=== PATIENT | male | born 1960 | race Caucasian/White ===

== ENCOUNTER 2018-02-19 15:10 | Inpatient (IN) | payer MEDICAID, MEDICARE ==
[2018-02-19] MEDS ORDERED: cefTRIAXone 1 GM in Sodium Chloride 0.9% 50 ML IV ONE (15:53)
--- NOTE | 2018-02-19 16:12 | ED Physician Chart ---
ED Chief Complaint/HPI - Patient Information Date Seen:: 02/19/18 Time Seen:: 15:40 Chief Complaint:: Leg Swelling History of Present Illness:: onset x 3 days of bilateral LE Redness, swelling, pain, and erythema; pt denies trauma, LOC, ALOC, AMS, H/As, S/T, neck pain, C/P, SOB, cough, Abd. Pain, A/N/V/ D/C, fever, chills, or urinary s/s; pt's last tetanus shot: < 5 years; UTD Allergies:: Allergies Allergy/AdvReac Type Severity Reaction Status Date / Time No Known Allergies Allergy Verified 02/19/18 15:34 Vitals:: Vital Signs - 8 hr 02/19/18 15:37 Temp 98.7 F HR 87 RR 16 BP 131/70 O2 Sat % 95 Historian:: Patient, EMS Review:: Nurse's Note Reviewed, Old Chart Reviewed, EMS run form Reviewed ED Review of Systems - Review of Systems General/Constitutional: No fever, No chills, No weight loss, No weakness, No diaphoresis, No edema, No loss of appetite Skin: No skin lesions, No rash, No bruising Head: No headache, No light-headedness Eyes: No loss of vision, No pain, No diplopia ENT: No earache, No nasal drainage, No sore throat, No tinnitus Neck: No neck pain, No swelling, No thyromegaly, No stiffness, No mass noted Cardio Vascular: No chest pain, No palpitations, No PND, No orthopnea, No edema Pulmonary: No SOB, No cough, No sputum, No wheezing GI: Nausea, Vomiting, Diarrhea, Pain, No melena, No hematochezia, No constipation, No hematemesis G/U: No dysuria, No frequency, No hematuria, No nacturia Musculoskeletal: No bone or joint pain, Back pain, No muscle pain Endocrine: No polyuria, No polydipsia Psychiatric: Prior psych history, Depression, Anxiety, No suicidal ideation, No homicidal ideation, No auditory hallucination, No visual hallucination Hematopoietic: No bruising, No lymphadenopathy Allergic/Immuno: No urticaria, No angioedema Neurological: No syncope, No focal symptoms, No weakness, No paresthesia, No headache, No seizure, No dizziness, No confusion, No vertigo ED Past Medical History - Past Medical History Obtainable: Yes Past Medical History: HTN, CAD, Dyslipidemia, PUD/GERD, Other (Hepatitis C; Pancreatitis; ) Family History: HTN Social History: Smoker, Alcohol, No Drug Use, Single, Care Facility Surgical History: None Psychiatricy History: Depression Medication: Reviewed Family Medical History - Family Member Father History Unknown: Yes ED Physical Exam - Physical Examination General/Constitutional: Awake, Well-developed, well-nourished, Alert, No distress, GCS 15, Non-toxic appearing, Ambulatory Head: Atraumatic Eyes: Lids, conjuctiva normal, PERRL, EOMI Skin: Nl inspection, No rash, No skin lesions, No ecchymosis, Well hydrated, No lymphadenopathy Other Skin comments:: + LE Bilateral LE Cellulitis; good NV functions ENMT: External ears, nose nl, TM canals nl, Nasal exam nl, Lips, teeth, gums nl , Oropharynx nl, Tonsils nl Neck: Nontender, Full ROM w/o pain, No JVD, No nuchal rigidity, No bruit, No mass, No stridor Respiratory: Nl effort/Exclusion Other Respiratory comments:: Lungs: + Rales and Rhonchi Cardio Vascular: RRR, No murmur, gallop, rubs, NL S1 S2, Carotid/Femoral/Distal pulses equal bilaterally GI: No tenderness/rebounding/guarding, No organomegaly, No hernia, Normal BS's, Nondistended, No mass/bruits, No McBurney tenderness : No CVA tenderness Extremities: No tenderness or effusion, Full ROM, normal strength in all extremities, No edema, Normal digits & nails Neuro/Psych: Alert/oriented, DTR's symmetric, Normal sensory exam, Normal motor strength, Judgement/insight normal, Mood normal, Normal gait, No focal deficits Misc: Normal back, No paraspinal tenderness ED Labs/Radiology/EKG Results - Lab Results Comments:: Reviewed - Radiology Results Comments:: CXR: + RLL Infiltrate; + CHF; + PE; Abd/Pelvis CT Scan: + Pneumonia/Effusions; ASCVD - EKG Interpretations EKG Time:: 16:04 Rate & Rhythm: 86; NSR Comments:: non-specific st-t changes ED Septic Shock - . Is Septic Shock (SBP<90, OR Lactate>4 mmol\L) present?: No - <6hrs of presentation: Vital Signs: Vital Signs - 8 hr 02/19/18 15:37 Temp 98.7 F HR 87 RR 16 BP 131/70 O2 Sat % 95 ED Reassessment (Disposition) - Reassessment Reassessment Condition:: Improved - Diagnosis Diagnosis:: Dx: Cellulitis; Leg Pain; Leg Edema; Back Pain; Anemia; Thrombocytopenia; Hypoalbuminemia; CHF; Elevated BNP; Pneumonia; Pleural Effusions; Sepsis - Aftercare/Follow up Instructions Aftercare/Follow-Up Instructions:: Counseled pt regarding lab results/diagnosis & need follow up, Counseled pt & family regarding lab results/diagnosis & need follow up - Patient Disposition Discharge/Transfer:: Acute Care w/in this hosp Accepting Physician:: Dr. Gonzalez Time Called:: 1729 Time Responded:: 17:30 Admitted to:: Telemetry Spoke to:: Dr. Gonzalez Admitting Medical Physician:: Dr. Gonzalez Condition at Disposition:: Stable, Improved
[2018-02-19 16:17] LABS: BASOPHILE ABSOLUTE 0.1 Th/cumm (0-0.2); EOSINOPHILE ABSOLUTE 0.2 Th/cmm (0.1-0.4); HEMATOCRIT 35.2 % (41.0-60); HEMOGLOBIN 11.5 gm/dL (12-16); LYMPHOCYTE ABSOLUTE 1.4 Th/cmm (1.5-3.0); MEAN CELL VOLUME 80.8 fl (80-99); MEAN CORPUSCULAR HEMOGLOBIN 26.4 pg (26.0-30.0); MEAN CORPUSCULAR HGB CONC 32.7 pg (28.0-36.0); MEAN PLATELET VOLUME 8.8 fl; MONOCYTE ABSOLUTE 0.8 Th/cmm (0.3-1.0); NEUTROPHILE ABSOLUTE 2.5 Th/cmm (1.8-8.0); PLATELET COUNT 140 Th/cmm (150-400); RED BLOOD COUNT 4.35 Mil/cmm (4.30-5.70); RED CELL DISTRIBUTION WIDTH 14.8 % (11.5-20.0)
[2018-02-19 16:19] LABS: % BASOPHILS 1.4 % (0.0-2.0); % EOSINOPHILS 4.7 % (0.0-5.0); % LYMPHOCYTES 28.5 % (20.0-50.0); % MONOCYTES 15.6 % (2.0-10.0); % NEUTROPHILS 49.8 % (40.0-80.0)
[2018-02-19 16:21] LABS: ALBUMIN 3.2 gm/dL (4.2-5.5); ALKALINE PHOSPHATASE 91 U/L (34-104); ANION GAP 11.7 (7.0-16.0); BILIRUBIN,TOTAL 0.6 mg/dL (0.3-1.0); BUN - UREA NITROGEN 17 mg/dL (7-25); CALCIUM SERUM 9.1 mg/dL (8.6-10.3); CARBON DIOXIDE 25.4 mEq/L (21.0-31.0); CHLORIDE 109 mEq/L (98-107); CHOLESTEROL 125 mg/dL (<200); CREATININE - SERUM 0.9 mg/dL (0.7-1.3); CREATININE KINASE 53 U/L (30-223); GFR AFRICAN-AMERICAN > 60.0 ml/min (>90); GFR NON AFRICAN-AMERICAN > 60.0 ml/min; GLUCOSE 74 mg/dL (70-105); HDL -HIGH DENSITY LIPOPROTEIN 47 mg/dL (23-92); POTASSIUM SERUM 4.1 mEq/L (3.5-5.1); SGOT 36 U/L (13-39); SGPT/ALT 26 U/L (7-52); SODIUM SERUM 142 mEq/L (136-145); TOTAL PROTEIN,SERUM 6.3 gm/dL (6.0-8.3); TRIGLYCERIDES 67 mg/dL (<150)
[2018-02-19 16:22] LABS: INR 1.02 (0.5-1.4); PROTHROMBIN TIME (TEST) 10.6 SECONDS (9.5-11.5)
[2018-02-19 16:49] LABS: ALB/GLOB RATIO 1.2 (1.0-1.8); ALBUMIN 3.2 gm/dL (4.2-5.5); BILIRUBIN,DIRECT 0.19 mg/dL (0.0-0.2); BILIRUBIN,TOTAL 0.6 mg/dL (0.3-1.0); TOTAL PROTEIN,SERUM 5.8 gm/dL (6.0-8.3)
[2018-02-19 16:50] LABS: AMYLASE SERUM 37 U/L (29-103); LIPASE 28 U/L (11-82)
[2018-02-19 18:21] LABS: URINE SOURCE MIDSTREAM
[2018-02-19 18:24] LABS: URINE BILIRUBIN NEGATIVE (NEGATIVE); URINE BLOOD TRACE (NEGATIVE); URINE GLUCOSE (UA) NEGATIVE (NEGATIVE); URINE KETONE NEGATIVE (NEGATIVE); URINE LEUKOCYTE ESTERASE NEGATIVE (NEGATIVE); URINE MICROSCOPIC INDICATED? YES; URINE NITRATE NEGATIVE (NEGATIVE); URINE PROTEIN TRACE mg/dL (NEGATIVE); URINE UROBILINOGEN 0.2 E.U./dL (0.2 - 1.0)
[2018-02-19 18:54] LABS: URINE CLARITY CLEAR (CLEAR); URINE COLOR YELLOW
[2018-02-19 18:57] LABS: URINE BACTERIA FEW /hpf (NONE SEEN); URINE EPITHELIAL CELLS FEW /lpf (FEW); URINE WBC 0-2 /hpf (0-5)
[2018-02-19] MEDS ORDERED: Non-Formulary Item 1 EA (Acetaminophen [Pain Reliever] 650 MG) PO PRN (20:00)
[2018-02-19] MEDS ORDERED: Azithromycin 500 MG in Sodium Chloride 0.9% 250 ML IV ONE (20:00)
[2018-02-19] MEDS ORDERED: Magnesium Hydroxide (MOM) 30 mL UDC PO PRN (20:00)
[2018-02-19 23:19] VITALS: BP 126/72
--- NOTE | 2018-02-20 08:36 | Diagnostic Imaging Report ---
CHEST X-RAY: AP view INDICATION: pain COMPARISON: None FINDINGS: Small bilateral effusions are noted with bibasal infiltrates. Mild cardiomegaly is noted. Degenerative changes of the spine are noted. IMPRESSION: Small bilateral effusions and bibasal infiltrates. Mild cardiomegaly.
--- NOTE | 2018-02-20 08:39 | Diagnostic Imaging Report ---
Bilateral lower extremity DVT study HISTORY: Pain, rule out DVT COMPARISON: None Technique: Longitudinal and transverse sonographic images of the bilateral lower extremity veins were obtained with doppler analysis. FINDINGS: There is normal compressibility, augmentation and phasicity of the bilateral common femoral, superficial femoral, popliteal, and posterior tibial veins. No thrombus is visualized. IMPRESSION: No evidence of thrombus within the bilateral lower extremity veins.
[2018-02-20] MEDS ORDERED: Non-Formulary Item 1 EA (Thiamine Hcl [Thiamine Hcl] 100 MG) PO SCH (09:00)
[2018-02-20] MEDS ORDERED: Non-Formulary Item 1 EA (Multivitamin [Multi-Vitamin Daily] 1 TAB) PO SCH (09:00)
[2018-02-20] MEDS ORDERED: Non-Formulary Item 1 EA (Potassium Chloride [Potassium Chloride] 20 MEQ) PO SCH (09:00)
[2018-02-20] MEDS ORDERED: Non-Formulary Item 1 EA (Rifaximin [Xifaxan] 550 MG) PO SCH (09:00)
[2018-02-20] MEDS ORDERED: Non-Formulary Item 1 EA (Lactulose [Lactulose] 30 ML) PO SCH (09:00)
[2018-02-20] MEDS ORDERED: Insulin Detemir 100 units/mL 10mL Vial SUBQ SCH (09:00)
--- NOTE | 2018-02-20 09:03 | Diagnostic Imaging Report ---
CT abdomen and pelvis without intravenous contrast Indication: Abdominal pain, back pain, rule out aneurysm Comparison: None, Technique: Axial images were obtained from the lung bases to the bilateral proximal femurs without IV contrast. Coronal reconstructions were made. total DLP: 475, CTDI9.3 FINDINGS: Bilateral pleural effusions are seen with bibasal infiltrates. Small pericardial effusion is noted. Exam is limited due to lack of IV contrast. A TIPS shunt catheter is noted. Punctate granuloma seen in the right lobe of the liver. The patient is status post cholecystectomy. The spleen is prominent measuring 13.5 cm. There are probable varices and most pronounced along the splenic region. This limits assessment of the left adrenal gland. No focal abnormal masses of the right adrenal gland. No evidence of hydronephrosis or nephrolithiasis. Minimal nonspecific bilateral perinephric inflammatory changes are noted. Distended urinary bladder is noted. Mild urinary bladder wall thickening is noted. Mildly distended fluid-filled stomach is noted. There is a moderate amount of stool throughout the colon. No appendicitis. No evidence of free abdominal air or free abdominal fluid. Diffuse atherosclerosis is noted. Degenerative changes of the spine are noted with mild scoliosis. Few small bone island are seen within the spine and pelvis. Anasarca is noted. IMPRESSION: Diffuse atherosclerotic vascular disease. No evidence of an abdominal aortic aneurysm. Exam was limited due to lack of IV contrast. Distended urinary bladder with mild urinary bladder wall thickening. Inflammatory process cannot be excluded. Moderate stool throughout the colon with gas-filled bowel. Please correlate clinically for possible mild constipation TIPS shunt catheter. There is also evidence of prior cholecystectomy. Mild splenomegaly. There is suggestion of multiple varices along the upper abdomen including the left upper quadrant. Note assessment for varices was limited that lack of IV contrast. Bilateral effusions and bibasal infiltrates. Anasarca.
[2018-02-20] MEDS: Lactulose 10 Gm/15 mL 30mL UDC PO SCH (10:34)
[2018-02-20] MEDS: Potassium Chloride 20 mEq ER Tab PO SCH ×2 (10:35→19:39)
[2018-02-20] MEDS: Ferrous Sulfate 325 MG TAB PO SCH ×2 (10:35→19:39)
[2018-02-20] MEDS: Multivitamin Tab PO SCH (10:35)
[2018-02-20] MEDS: Pantoprazole 40 mg EC Tab PO SCH (10:36)
--- NOTE | 2018-02-20 14:59 | Cardiology ---
02/20/[address] Gonzalez. M-MODE ECHOCARDIOGRAM: Mitral valve, anterior leaflet of mitral valve shows normal excursion, EF velocity. Posterior leaflet of the mitral valve shows normal excursion. Left ventricular posterior wall shows increased thickness, normal excursion. Interventricular septum shows increased thickness, normal excursion, hypertrophy of the left ventricle, ejection fraction 58%. Left atrium enlarged 4.7 cm. Aortic root shows normal dimension, normal excursion of aortic leaflets. CONCLUSION: Hypertrophy of the left ventricle, left atrial enlargement, ejection fraction 58%. 2D ECHO: Long axis view showed normal sized left ventricle with hypertrophy of the left ventricle. Left atrium enlarged. Aortic root shows normal dimension, normal excursion of aortic leaflets. Short axis view of mitral valve normal. Short axis view of aortic valve normal. Apical four chamber view showed normal sized left ventricle with hypertrophy of the left ventricle. Left atrium enlarged. Right ventricular cavity, right atrium enlarged. CONCLUSION: Left atrial enlargement, right atrial enlargement. Hypertrophy of the left ventricle, ejection fraction 58%. Doppler study shows moderate mitral regurgitation, moderate tricuspid regurgitation, right ventricular systolic pressure 42 mmHg. The patient has pleural effusion. JOB# [id number]
[2018-02-20] MEDS: INSULIN ASPART SLIDING SCALE 100 UNITS/ML UNIT SUBQ SCH ×2 (17:00→21:50)
--- NOTE | 2018-02-20 20:45 | History & Physical ---
ADMIT DATE: 02/19/2018 CHIEF COMPLAINT: Leg swelling, shortness of breath. HISTORY OF PRESENT ILLNESS: This is a 57-year-old male with history of cirrhosis, alcoholic hepatitis, generalized weakness, sent from the nursing facility secondary to history of bilateral lower extremity swelling and redness. The patient was diagnosed with a cellulitis in the ER, chest x-ray was suspicious for pneumonia. The patient admitted for further management. The patient denies chest pain, shortness of breath. PAST MEDICAL HISTORY: As mentioned in history of present illness. PAST SURGICAL HISTORY: Denies surgeries in the past. ALLERGIES: No known drug allergies. MEDICATIONS: The patient needs insulin, Tylenol, ascorbic acid, aspirin, Dulcolax, carvedilol, iron, folic acid, gabapentin, detemir insulin, lactulose, multivitamins, pantoprazole, potassium, sertraline, thiamine, tramadol. FAMILY HISTORY: Noncontributory. SOCIAL HISTORY: ____ smoker and drinker in the past. The patient did ____. The patient lives in custodial for and expected it was in [place]. PHYSICAL EXAMINATION: VITAL SIGNS: Blood pressure 120/63, respiration 18, pulse 83, temperature 99.2. GENERAL: Elderly male, appears chronically ill. NECK: Supple. LUNGS: Equal breath sounds with few rhonchi. HEART: Regular rate and rhythm without systolic ejection murmur. ABDOMEN: Soft, globular. EXTREMITIES: Positive excoriation atrophy. Trace edema in lower extremity and redness the right lower extremity. LABORATORY DATA: WBC 5.1, hemoglobin 9.5, platelets 140. INR 1.2. Sodium 142, potassium 4.0, BUN 20, creatinine 0.9, blood sugar 248, BNP ____. ASSESSMENT: Bilateral lower extremity cellulitis, possible pneumonia, low albumin, cirrhosis, alcohol hepatitis, generalized weakness, hepatic encephalopathy, anemia. We will continue the patient on IV antibiotic. We will titrate the patient on current dose of medication. We will monitor for any signs of fluid overload. We will perform 2D echo. We will continue on rifaximin. We will adjust the patient's medication. We will follow the patient closely. JOB# [id number]
[2018-02-20] MEDS: Insulin Detemir 100 units/mL 10mL Vial SUBQ SCH (21:48)
[2018-02-21 06:27] LABS: EOSINOPHILE ABSOLUTE 0.4 Th/cmm (0.1-0.4); HEMOGLOBIN 10.9 gm/dL (12-16); LYMPHOCYTE ABSOLUTE 1.9 Th/cmm (1.5-3.0); MEAN CELL VOLUME 80.2 fl (80-99); MEAN CORPUSCULAR HEMOGLOBIN 26.6 pg (26.0-30.0); MEAN CORPUSCULAR HGB CONC 33.2 pg (28.0-36.0); MEAN PLATELET VOLUME 9.4 fl; MONOCYTE ABSOLUTE 0.8 Th/cmm (0.3-1.0); NEUTROPHILE ABSOLUTE 2.3 Th/cmm (1.8-8.0); PLATELET COUNT 135 Th/cmm (150-400); RED BLOOD COUNT 4.11 Mil/cmm (4.30-5.70); RED CELL DISTRIBUTION WIDTH 14.1 % (11.5-20.0); WHITE BLOOD COUNT 5.4 Th/cmm (4.8-10.8)
[2018-02-21 06:43] LABS: ALB/GLOB RATIO 1.1 (1.0-1.8); ALKALINE PHOSPHATASE 76 U/L (34-104); ANION GAP 10.7 (7.0-16.0); BILIRUBIN,TOTAL 0.5 mg/dL (0.3-1.0); BUN - UREA NITROGEN 12 mg/dL (7-25); CALCIUM SERUM 8.6 mg/dL (8.6-10.3); CHLORIDE 111 mEq/L (98-107); CREATININE - SERUM 0.8 mg/dL (0.7-1.3); GFR AFRICAN-AMERICAN > 60.0 ml/min (>90); GFR NON AFRICAN-AMERICAN > 60.0 ml/min; GLUCOSE 65 mg/dL (70-105); POTASSIUM SERUM 3.7 mEq/L (3.5-5.1); SGOT 31 U/L (13-39); SGPT/ALT 24 U/L (7-52); SODIUM SERUM 145 mEq/L (136-145); TOTAL PROTEIN,SERUM 5.8 gm/dL (6.0-8.3)
[2018-02-21 07:30] LABS: BAND NEUTROPHILE 1 % (0-10); EOSINOPHIL 5 % (0-5); LYMPHOCYTE 40 % (20-50); MONOCYTE 12 % (2-10); NEUTROPHILS 42 % (40-80)
[2018-02-21 07:34] LABS: ANISOCYTOSIS 1+
[2018-02-21] MEDS: INSULIN ASPART SLIDING SCALE 100 UNITS/ML UNIT SUBQ SCH ×4 (08:52→21:26)
[2018-02-21] MEDS: Potassium Chloride 20 mEq ER Tab PO SCH ×2 (08:54→16:53)
[2018-02-21] MEDS: Ferrous Sulfate 325 MG TAB PO SCH ×2 (08:54→16:53)
[2018-02-21] MEDS: Multivitamin Tab PO SCH (08:55)
[2018-02-21] MEDS: Lactulose 10 Gm/15 mL 30mL UDC PO SCH (08:55)
[2018-02-21] MEDS ORDERED: Probiotic Screen MC PRN (10:15)
--- NOTE | 2018-02-21 15:17 | Internal Medicine Prog Note ---
Internal Medicine Subjective - Subjective Patient seen and examined:: with staff, chart reviewed Patient is:: awake, verbal, interactive Patient Complaints of:: congestion, unable to sleep, weight gain Per staff patient has:: no adverse event, no episodes of fall, tolerating meds Internal Medicine Objective - Results Result Diagrams: 02/21/18 05:30 02/21/18 05:30 Recent Labs: Laboratory Last Values WBC 5.4 Th/cmm (4.8-10.8) 02/21/18 05:30 RBC 4.11 Mil/cmm (4.30-5.70) L 02/21/18 05:30 Hgb 10.9 gm/dL (12-16) L 02/21/18 05:30 Hct 33.0 % (41.0-60) L 02/21/18 05:30 MCV 80.2 fl (80-99) 02/21/18 05:30 MCH 26.6 pg (26.0-30.0) 02/21/18 05:30 MCHC Differential 33.2 pg (28.0-36.0) 02/21/18 05:30 RDW 14.1 % (11.5-20.0) 02/21/18 05:30 Plt Count 135 Th/cmm (150-400) L 02/21/18 05:30 MPV 9.4 fl 02/21/18 05:30 Add Manual Diff YES 02/21/18 05:30 Neutrophils % 49.8 % (40.0-80.0) 02/19/18 15:58 Band Neutrophils % 1 % (0-10) 02/21/18 05:30 Lymphocytes % 28.5 % (20.0-50.0) 02/19/18 15:58 Monocytes % 15.6 % (2.0-10.0) H 02/19/18 15:58 Eosinophils % 4.7 % (0.0-5.0) 02/19/18 15:58 Basophils % 1.4 % (0.0-2.0) 02/19/18 15:58 Neutrophils (Manual) 42 % (40-80) 02/21/18 05:30 Lymphocytes 40 % (20-50) 02/21/18 05:30 Monocytes 12 % (2-10) H 02/21/18 05:30 Eosinophils 5 % (0-5) 02/21/18 05:30 Anisocytosis 1+ 02/21/18 05:30 PT 10.6 SECONDS (9.5-11.5) 02/19/18 15:58 INR 1.02 (0.5-1.4) 02/19/18 15:58 PTT (Actin FS) 28.5 SECONDS (26.0-38.0) 02/19/18 15:58 Sodium 145 mEq/L (136-145) 02/21/18 05:30 Potassium 3.7 mEq/L (3.5-5.1) 02/21/18 05:30 Chloride 111 mEq/L (98-107) H 02/21/18 05:30 Carbon Dioxide 27.0 mEq/L (21.0-31.0) 02/21/18 05:30 Anion Gap 10.7 (7.0-16.0) 02/21/18 05:30 BUN 12 mg/dL (7-25) 02/21/18 05:30 Creatinine 0.8 mg/dL (0.7-1.3) 02/21/18 05:30 Est GFR ( Amer) > 60.0 ml/min (>90) 02/21/18 05:30 Est GFR (Non-Af Amer) > 60.0 ml/min 02/21/18 05:30 BUN/Creatinine Ratio 15.0 02/21/18 05:30 Glucose 65 mg/dL (70-105) L 02/21/18 05:30 POC Glucose 181 MG/DL (70 - 105) H 02/21/18 11:47 Whole Bld Lactic Acid 0.76 mmol/L (0.60-1.99) 02/19/18 15:58 Calcium 8.6 mg/dL (8.6-10.3) 02/21/18 05:30 Total Bilirubin 0.5 mg/dL (0.3-1.0) 02/21/18 05:30 Direct Bilirubin 0.19 mg/dL (0.0-0.2) 02/19/18 15:58 AST 31 U/L (13-39) 02/21/18 05:30 ALT 24 U/L (7-52) 02/21/18 05:30 Alkaline Phosphatase 76 U/L (34-104) 02/21/18 05:30 Creatine Kinase 53 U/L (30-223) 02/19/18 15:58 Troponin I 0.02 ng/mL (0.01-0.05) 02/19/18 15:58 B-Natriuretic Peptide 303.0 pg/mL (5.0-100.0) H 02/21/18 05:30 Total Protein 5.8 gm/dL (6.0-8.3) L 02/21/18 05:30 Albumin 3.0 gm/dL (4.2-5.5) L 02/21/18 05:30 Globulin 2.8 gm/dL 02/21/18 05:30 Albumin/Globulin Ratio 1.1 (1.0-1.8) 02/21/18 05:30 Triglycerides 67 mg/dL (<150) 02/19/18 15:58 Cholesterol 125 mg/dL (<200) 02/19/18 15:58 LDL Cholesterol Direct 62 mg/dL (75-193) L 02/19/18 15:58 HDL Cholesterol 47 mg/dL (23-92) 02/19/18 15:58 Amylase 37 U/L (29-103) 02/19/18 15:58 Lipase 28 U/L (11-82) 02/19/18 15:58 Urine Source MIDSTREAM 02/19/18 16:15 Urine Color YELLOW 02/19/18 16:15 Urine Clarity CLEAR (CLEAR) 02/19/18 16:15 Urine pH 6.0 (4.6 - 8.0) 02/19/18 16:15 Ur Specific Clark 1.015 (1.005-1.030) 02/19/18 16:15 Urine Protein TRACE mg/dL (NEGATIVE) 02/19/18 16:15 Urine Glucose (UA) NEGATIVE mg/dL (NEGATIVE) 02/19/18 16:15 Urine Ketones NEGATIVE mg/dL (NEGATIVE) 02/19/18 16:15 Urine Blood TRACE (NEGATIVE) 02/19/18 16:15 Urine Nitrate NEGATIVE (NEGATIVE) 02/19/18 16:15 Urine Bilirubin NEGATIVE (NEGATIVE) 02/19/18 16:15 Urine Urobilinogen 0.2 E.U./dL (0.2 - 1.0) 02/19/18 16:15 Ur Leukocyte Esterase NEGATIVE (NEGATIVE) 02/19/18 16:15 Urine RBC 2-5 /hpf (0-5) H 02/19/18 16:15 Urine WBC 0-2 /hpf (0-5) 02/19/18 16:15 Ur Epithelial Cells FEW /lpf (FEW) 02/19/18 16:15 Urine Bacteria FEW /hpf (NONE SEEN) 02/19/18 16:15 Urine Mucus FEW /lpf (FEW) 02/19/18 16:15 - Physical Exam Vitals and I&O: Vital Signs Temp 97.9 F 02/21/18 13:52 Pulse 84 02/21/18 13:52 Resp 18 02/21/18 13:52 BP 120/78 02/21/18 13:52 Pulse Ox 95 02/21/18 13:52 Intake & Output 02/20/18 02/21/18 02/21/18 18:59 06:59 18:59 Intake Total 100 500 Balance 100 500 Weight (lbs) 72.121 kg Intake: Intake, IV Amount 100 200 Piperacillin Sodium/ 100 200 Tazobact 4.5 gm In Sodium Chloride 0.9% 100 ml @ 100 mls/hr IV Q8HR [facility] Rx #:[id number] Oral 300 Other: # Voids 3 # Bowel Movements 2 Weight Source Bedscale Active Medications: Current Medications Acetaminophen (Tylenol) 650 mg PO Q4H PRN PRN Reason: T=100.4/Pain Stop: 04/21/18 00:14 Last Admin: 02/20/18 02:20 Dose: 650 mg Acetaminophen (Tylenol) 650 mg PO Q4H PRN PRN Reason: PAIN/FEVER Stop: 04/21/18 08:50 Amlodipine Besylate (Norvasc) 10 mg PO DAILY [facility] Stop: 04/21/18 08:59 Last Admin: 02/21/18 08:55 Dose: 10 mg Ascorbic Acid (Vitamin C) 500 mg PO DAILY [facility] Stop: 04/21/18 08:59 Last Admin: 02/21/18 08:55 Dose: 500 mg Aspirin (Ecotrin) 81 mg PO DAILY [facility] Stop: 04/21/18 08:59 Last Admin: 02/21/18 08:55 Dose: 81 mg Bisacodyl (Dulcolax 10 Mg Supp) 10 mg RC DAILY PRN PRN Reason: Constipation Stop: 04/20/18 19:59 Carvedilol (Coreg) 6.25 mg PO BID [facility] Stop: 04/21/18 08:59 Last Admin: 02/21/18 08:54 Dose: 6.25 mg Ferrous Sulfate (Iron) 325 mg PO BID [facility] Stop: 04/21/18 08:59 Last Admin: 02/21/18 08:54 Dose: 325 mg Folic Acid (Folate) 1 mg PO DAILY [facility] Stop: 04/21/18 08:59 Last Admin: 02/21/18 08:54 Dose: 1 mg Furosemide (Lasix) 40 mg IVP DAILY [facility] Stop: 04/22/18 15:12 Gabapentin (Neurontin) 300 mg PO Q12H [facility] Stop: 04/20/18 19:59 Last Admin: 02/21/18 08:55 Dose: 300 mg Piperacillin Sod/Tazobactam (Sod 4.5 gm/ Sodium Chloride) 100 mls @ 100 mls/hr IV Q8HR [facility] Stop: 04/20/18 20:59 Last Admin: 02/21/18 12:37 Dose: 100 mls/hr Insulin Aspart (Novolog Insulin Sliding Scale) 0 units SUBQ ACHS [facility]; Protocol Stop: 04/21/18 16:29 Last Admin: 02/21/18 12:37 Dose: Not Given Insulin Detemir (Levemir Insulin) 16 units SUBQ HS [facility]; Protocol Stop: 04/21/18 20:59 Last Admin: 02/20/18 21:48 Dose: 16 units Lactobacillus Rhamnosus (Culturelle 15b) 1 each PO DAILY [facility] Stop: 04/23/18 08:59 Lactulose (Cephulac) 20 gm PO DAILY [facility] Stop: 04/21/18 08:59 Last Admin: 02/21/18 08:55 Dose: 20 gm Magnesium Hydroxide (Milk Of Magnesia) 30 ml PO Q2D PRN PRN Reason: Constipation Stop: 04/20/18 19:59 Miscellaneous (Probiotic Screen) 1 ea MC PRN PRN PRN Reason: PROTOCOL Stop: 04/22/18 10:14 Multivitamins/Vitamin C (Theragran) 1 tab PO DAILY [facility] Stop: 04/21/18 08:59 Last Admin: 02/21/18 08:55 Dose: 1 tab Pantoprazole Sodium (Protonix) 40 mg PO DAILY [facility] Stop: 04/21/18 08:59 Last Admin: 02/20/18 10:36 Dose: 40 mg Potassium Chloride (Klor-Con) 20 meq PO BID [facility] Stop: 04/21/18 08:59 Last Admin: 02/21/18 08:54 Dose: 20 meq Rifaximin (Xifaxan) 600 mg PO DAILY [facility] Stop: 04/21/18 08:59 Last Admin: 02/21/18 08:53 Dose: 600 mg Sertraline HCl (Zoloft) 100 mg PO DAILY [facility]; Protocol Stop: 04/21/18 08:59 Last Admin: 02/21/18 08:53 Dose: 100 mg Thiamine HCl (Vitamin B1) 100 mg PO DAILY [facility] Stop: 04/21/18 08:59 Last Admin: 02/21/18 08:55 Dose: 100 mg Tramadol HCl (Ultram) 50 mg PO Q6H PRN PRN Reason: Pain (Moderate) Stop: 04/20/18 19:59 Last Admin: 02/20/18 13:50 Dose: 50 mg General: demented HEENT: NC/AT, PERRLA Neck: Supple, No JVD Lungs: congested, rales, ronchi Cardiovascular: RRR, Normal S1, Normal S2, with murmur Abdomen: soft, globular, positive bowel sound Extremities: excoriation, contracture Neurological: no change Internal Medicine Assmt/Plan - Assessment Assessment: ASSESSMENT: Bilateral lower extremity cellulitis, fluid overload, possible pneumonia, low albumin, cirrhosis, alcohol hepatitis, generalized weakness, hepatic encephalopathy, anemia. - Plan Plan: We will continue the patient on IV antibiotic. We will titrate the patient on current dose of medication. We will monitor for any signs of fluid overload. We will perform 2D echo. We will continue on rifaximin. We will adjust the patient's medication. We will follow the patient closely.
[2018-02-21] MEDS: Pantoprazole 40 mg EC Tab PO SCH (16:58)
[2018-02-21] MEDS: Hydrocodone/APAP 5mg/325mg Tab PO PRN (17:13)
[2018-02-21] MEDS: Insulin Detemir 100 units/mL 10mL Vial SUBQ SCH (21:25)
[2018-02-22] MEDS: Hydrocodone/APAP 5mg/325mg Tab PO PRN ×3 (01:26→22:53)
[2018-02-22 07:04] LABS: HEMATOCRIT 34.5 % (41.0-60); HEMOGLOBIN 11.4 gm/dL (12-16); MEAN CELL VOLUME 80.5 fl (80-99); MEAN CORPUSCULAR HEMOGLOBIN 26.5 pg (26.0-30.0); MEAN PLATELET VOLUME 8.9 fl; PLATELET COUNT 136 Th/cmm (150-400); RED BLOOD COUNT 4.28 Mil/cmm (4.30-5.70); RED CELL DISTRIBUTION WIDTH 14.1 % (11.5-20.0); WHITE BLOOD COUNT 6.5 Th/cmm (4.8-10.8)
[2018-02-22 07:18] LABS: ANION GAP 8.8 (7.0-16.0); BUN - UREA NITROGEN 11 mg/dL (7-25); CALCIUM SERUM 8.8 mg/dL (8.6-10.3); CARBON DIOXIDE 30.5 mEq/L (21.0-31.0); CHLORIDE 108 mEq/L (98-107); CREATININE - SERUM 0.9 mg/dL (0.7-1.3); GFR AFRICAN-AMERICAN > 60.0 ml/min (>90); GFR NON AFRICAN-AMERICAN > 60.0 ml/min; GLUCOSE 61 mg/dL (70-105); MAGNESIUM 1.4 mg/dL (1.9-2.7); POTASSIUM SERUM 3.3 mEq/L (3.5-5.1); SODIUM SERUM 144 mEq/L (136-145)
[2018-02-22] MEDS: INSULIN ASPART SLIDING SCALE 100 UNITS/ML UNIT SUBQ SCH ×4 (07:54→21:55)
[2018-02-22 08:54] LABS: BAND NEUTROPHILE 7 % (0-10); BASOPHIL 0 % (0-3); EOSINOPHIL 0 % (0-5); LYMPHOCYTE 25 % (20-50); MONOCYTE 14 % (2-10); NEUTROPHILS 54 % (40-80)
[2018-02-22] MEDS: Multivitamin Tab PO SCH (09:32)
[2018-02-22] MEDS: Pantoprazole 40 mg EC Tab PO SCH (09:33)
[2018-02-22] MEDS: Ferrous Sulfate 325 MG TAB PO SCH ×2 (09:33→16:55)
[2018-02-22] MEDS: Lactobacillus Rhamnosus GG 15 Billion CFU CAP.SPRINK PO SCH (09:34)
[2018-02-22] MEDS: Potassium Chloride 20 mEq ER Tab PO SCH ×2 (09:34→16:54)
[2018-02-22] MEDS: Lactulose 10 Gm/15 mL 30mL UDC PO SCH (09:35)
[2018-02-22] MEDS ORDERED: Mag Sulfate 2gm/50mL Premix 2 GM/50 ML BAG IV ONE (09:42)
--- NOTE | 2018-02-22 09:44 | Internal Medicine Prog Note ---
Internal Medicine Subjective - Subjective Patient seen and examined:: with staff, chart reviewed, other (not feeling ok) Patient is:: awake, verbal, interactive Patient Complaints of:: congestion, unable to sleep, weight gain Per staff patient has:: no adverse event, no episodes of fall, tolerating meds Internal Medicine Objective - Results Result Diagrams: 02/22/18 06:49 02/22/18 06:49 Recent Labs: Laboratory Last Values WBC 6.5 Th/cmm (4.8-10.8) 02/22/18 06:49 RBC 4.28 Mil/cmm (4.30-5.70) L 02/22/18 06:49 Hgb 11.4 gm/dL (12-16) L 02/22/18 06:49 Hct 34.5 % (41.0-60) L 02/22/18 06:49 MCV 80.5 fl (80-99) 02/22/18 06:49 MCH 26.5 pg (26.0-30.0) 02/22/18 06:49 MCHC Differential 33.0 pg (28.0-36.0) 02/22/18 06:49 RDW 14.1 % (11.5-20.0) 02/22/18 06:49 Plt Count 136 Th/cmm (150-400) L 02/22/18 06:49 MPV 8.9 fl 02/22/18 06:49 Add Manual Diff YES 02/22/18 06:49 Neutrophils % 49.8 % (40.0-80.0) 02/19/18 15:58 Band Neutrophils % 7 % (0-10) 02/22/18 06:49 Lymphocytes % 28.5 % (20.0-50.0) 02/19/18 15:58 Monocytes % 15.6 % (2.0-10.0) H 02/19/18 15:58 Eosinophils % 4.7 % (0.0-5.0) 02/19/18 15:58 Basophils % 1.4 % (0.0-2.0) 02/19/18 15:58 Neutrophils (Manual) 54 % (40-80) 02/22/18 06:49 Lymphocytes 25 % (20-50) 02/22/18 06:49 Monocytes 14 % (2-10) H 02/22/18 06:49 Eosinophils 0 % (0-5) 02/22/18 06:49 Basophils 0 % (0-3) 02/22/18 06:49 Anisocytosis 1+ 02/21/18 05:30 PT 10.6 SECONDS (9.5-11.5) 02/19/18 15:58 INR 1.02 (0.5-1.4) 02/19/18 15:58 PTT (Actin FS) 28.5 SECONDS (26.0-38.0) 02/19/18 15:58 Sodium 144 mEq/L (136-145) 02/22/18 06:49 Potassium 3.3 mEq/L (3.5-5.1) L 02/22/18 06:49 Chloride 108 mEq/L (98-107) H 02/22/18 06:49 Carbon Dioxide 30.5 mEq/L (21.0-31.0) 02/22/18 06:49 Anion Gap 8.8 (7.0-16.0) 02/22/18 06:49 BUN 11 mg/dL (7-25) 02/22/18 06:49 Creatinine 0.9 mg/dL (0.7-1.3) 02/22/18 06:49 Est GFR ( Amer) > 60.0 ml/min (>90) 02/22/18 06:49 Est GFR (Non-Af Amer) > 60.0 ml/min 02/22/18 06:49 BUN/Creatinine Ratio 12.2 02/22/18 06:49 Glucose 61 mg/dL (70-105) L 02/22/18 06:49 POC Glucose 148 MG/DL (70 - 105) H 02/22/18 07:51 Whole Bld Lactic Acid 0.76 mmol/L (0.60-1.99) 02/19/18 15:58 Calcium 8.8 mg/dL (8.6-10.3) 02/22/18 06:49 Magnesium 1.4 mg/dL (1.9-2.7) L 02/22/18 06:49 Total Bilirubin 0.5 mg/dL (0.3-1.0) 02/21/18 05:30 Direct Bilirubin 0.19 mg/dL (0.0-0.2) 02/19/18 15:58 AST 31 U/L (13-39) 02/21/18 05:30 ALT 24 U/L (7-52) 02/21/18 05:30 Alkaline Phosphatase 76 U/L (34-104) 02/21/18 05:30 Ammonia 61 umol/L (16-53) H 02/22/18 06:55 Creatine Kinase 53 U/L (30-223) 02/19/18 15:58 Troponin I 0.02 ng/mL (0.01-0.05) 02/19/18 15:58 B-Natriuretic Peptide 214.0 pg/mL (5.0-100.0) H 02/22/18 06:49 Total Protein 5.8 gm/dL (6.0-8.3) L 02/21/18 05:30 Albumin 3.0 gm/dL (4.2-5.5) L 02/21/18 05:30 Globulin 2.8 gm/dL 02/21/18 05:30 Albumin/Globulin Ratio 1.1 (1.0-1.8) 02/21/18 05:30 Triglycerides 67 mg/dL (<150) 02/19/18 15:58 Cholesterol 125 mg/dL (<200) 02/19/18 15:58 LDL Cholesterol Direct 62 mg/dL (75-193) L 02/19/18 15:58 HDL Cholesterol 47 mg/dL (23-92) 02/19/18 15:58 Amylase 37 U/L (29-103) 02/19/18 15:58 Lipase 28 U/L (11-82) 02/19/18 15:58 Urine Source MIDSTREAM 02/19/18 16:15 Urine Color YELLOW 02/19/18 16:15 Urine Clarity CLEAR (CLEAR) 02/19/18 16:15 Urine pH 6.0 (4.6 - 8.0) 02/19/18 16:15 Ur Specific Zanoni 1.015 (1.005-1.030) 02/19/18 16:15 Urine Protein TRACE mg/dL (NEGATIVE) 02/19/18 16:15 Urine Glucose (UA) NEGATIVE mg/dL (NEGATIVE) 02/19/18 16:15 Urine Ketones NEGATIVE mg/dL (NEGATIVE) 02/19/18 16:15 Urine Blood TRACE (NEGATIVE) 02/19/18 16:15 Urine Nitrate NEGATIVE (NEGATIVE) 02/19/18 16:15 Urine Bilirubin NEGATIVE (NEGATIVE) 02/19/18 16:15 Urine Urobilinogen 0.2 E.U./dL (0.2 - 1.0) 02/19/18 16:15 Ur Leukocyte Esterase NEGATIVE (NEGATIVE) 02/19/18 16:15 Urine RBC 2-5 /hpf (0-5) H 02/19/18 16:15 Urine WBC 0-2 /hpf (0-5) 02/19/18 16:15 Ur Epithelial Cells FEW /lpf (FEW) 02/19/18 16:15 Urine Bacteria FEW /hpf (NONE SEEN) 02/19/18 16:15 Urine Mucus FEW /lpf (FEW) 02/19/18 16:15 - Physical Exam Vitals and I&O: Vital Signs Temp 98.8 F 02/22/18 08:47 Pulse 83 02/22/18 09:34 Resp 17 02/22/18 08:47 BP 130/74 02/22/18 09:35 Pulse Ox 95 02/22/18 08:47 Intake & Output 02/21/18 02/22/18 02/22/18 18:59 06:59 18:59 Intake Total 100 400 Balance 100 400 Weight (lbs) 70.851 kg Intake: Intake, IV Amount 100 100 Piperacillin Sodium/ 100 100 Tazobact 4.5 gm In Sodium Chloride 0.9% 100 ml @ 100 mls/hr IV Q8HR [facility] Rx #:[id number] Oral 300 Other: # Voids 3 # Bowel Movements 4 Weight Source Bedscale Active Medications: Current Medications Acetaminophen (Tylenol) 650 mg PO Q4H PRN PRN Reason: T=100.4/Pain Stop: 04/21/18 00:14 Last Admin: 02/20/18 02:20 Dose: 650 mg Acetaminophen (Tylenol) 650 mg PO Q4H PRN PRN Reason: PAIN/FEVER Stop: 04/21/18 08:50 Acetaminophen/Hydrocodone Bitart (Kyle 5mg/325mg) 1 tab PO Q8H PRN PRN Reason: Pain (Severe) Stop: 04/22/18 15:18 Last Admin: 02/22/18 09:38 Dose: 1 tab Amlodipine Besylate (Norvasc) 10 mg PO DAILY [facility] Stop: 04/21/18 08:59 Last Admin: 02/22/18 09:33 Dose: 10 mg Ascorbic Acid (Vitamin C) 500 mg PO DAILY [facility] Stop: 04/21/18 08:59 Last Admin: 02/22/18 09:33 Dose: 500 mg Aspirin (Ecotrin) 81 mg PO DAILY [facility] Stop: 04/21/18 08:59 Last Admin: 02/22/18 09:38 Dose: 81 mg Bisacodyl (Dulcolax 10 Mg Supp) 10 mg RC DAILY PRN PRN Reason: Constipation Stop: 04/20/18 19:59 Carvedilol (Coreg) 6.25 mg PO BID [facility] Stop: 04/21/18 08:59 Last Admin: 02/22/18 09:34 Dose: 6.25 mg Ferrous Sulfate (Iron) 325 mg PO BID [facility] Stop: 04/21/18 08:59 Last Admin: 02/22/18 09:33 Dose: 325 mg Folic Acid (Folate) 1 mg PO DAILY [facility] Stop: 04/21/18 08:59 Last Admin: 02/22/18 09:33 Dose: 1 mg Furosemide (Lasix) 40 mg IVP DAILY [facility] Stop: 04/22/18 15:12 Last Admin: 02/22/18 09:35 Dose: 40 mg Gabapentin (Neurontin) 300 mg PO Q12H [facility] Stop: 04/20/18 19:59 Last Admin: 02/21/18 21:22 Dose: 300 mg Piperacillin Sod/Tazobactam (Sod 4.5 gm/ Sodium Chloride) 100 mls @ 100 mls/hr IV Q8HR [facility] Stop: 04/20/18 20:59 Last Admin: 02/22/18 05:45 Dose: 100 mls/hr Magnesium Sulfate (Magnesium Sulfate Premix) 2 gm in 50 mls @ 25 mls/hr IV X1 ONE Stop: 02/22/18 11:41 Insulin Aspart (Novolog Insulin Sliding Scale) 0 units SUBQ ACHS [facility]; Protocol Stop: 04/21/18 16:29 Last Admin: 02/22/18 07:54 Dose: Not Given Insulin Detemir (Levemir Insulin) 16 units SUBQ HS [facility]; Protocol Stop: 04/21/18 20:59 Last Admin: 02/21/18 21:25 Dose: 16 units Lactobacillus Rhamnosus (Culturelle 15b) 1 each PO DAILY [facility] Stop: 04/23/18 08:59 Last Admin: 02/22/18 09:34 Dose: 1 each Lactulose (Cephulac) 20 gm PO DAILY [facility] Stop: 04/21/18 08:59 Last Admin: 02/22/18 09:35 Dose: Not Given Magnesium Hydroxide (Milk Of Magnesia) 30 ml PO Q2D PRN PRN Reason: Constipation Stop: 04/20/18 19:59 Miscellaneous (Probiotic Screen) 1 ea [facility] PRN PRN PRN Reason: PROTOCOL Stop: 04/22/18 10:14 Multivitamins/Vitamin C (Theragran) 1 tab PO DAILY [facility] Stop: 04/21/18 08:59 Last Admin: 02/22/18 09:32 Dose: 1 tab Pantoprazole Sodium (Protonix) 40 mg PO DAILY [facility] Stop: 04/21/18 08:59 Last Admin: 02/22/18 09:33 Dose: 40 mg Potassium Chloride (Klor-Con) 20 meq PO BID [facility] Stop: 04/21/18 08:59 Last Admin: 02/22/18 09:34 Dose: 20 meq Rifaximin (Xifaxan) 600 mg PO DAILY [facility] Stop: 04/21/18 08:59 Last Admin: 02/22/18 09:34 Dose: 600 mg Sertraline HCl (Zoloft) 100 mg PO DAILY [facility]; Protocol Stop: 04/21/18 08:59 Last Admin: 02/22/18 09:32 Dose: 100 mg Thiamine HCl (Vitamin B1) 100 mg PO DAILY [facility] Stop: 04/21/18 08:59 Last Admin: 02/22/18 09:32 Dose: 100 mg Tramadol HCl (Ultram) 50 mg PO Q6H PRN PRN Reason: Pain (Moderate) Stop: 04/20/18 19:59 Last Admin: 02/20/18 13:50 Dose: 50 mg General: weak HEENT: NC/AT, PERRLA Neck: Supple, No JVD Lungs: congested, rales, ronchi Cardiovascular: RRR, Normal S1, Normal S2, with murmur Abdomen: soft, globular, positive bowel sound Extremities: excoriation, contracture Neurological: no change Internal Medicine Assmt/Plan - Assessment Assessment: ASSESSMENT: Bilateral lower extremity cellulitis, fluid overload, possible pneumonia, low albumin, cirrhosis, alcohol hepatitis, generalized weakness, hepatic encephalopathy, anemia. - Plan Plan: We will continue the patient on IV antibiotic. We will titrate the patient on current dose of medication. We will monitor for any signs of fluid overload. We will perform 2D echo. We will continue on rifaximin. We will adjust the patient's medication. We will follow the patient closely.
--- NOTE | 2018-02-22 17:26 | Consultation ---
DATE OF CONSULTATION: 02/21/[address] Gonzalez. HISTORY AND PHYSICAL: This is a 57-year-old male patient, who has been complaining of swelling in both lower extremities. Following this, the patient was brought to the Emergency Room and the patient is admitted. PAST MEDICAL HISTORY: Cirrhosis of liver, alcoholic hepatitis, alcohol dependence, diabetes mellitus type 2 insulin-dependent, diabetic peripheral neuropathy, GERD, anemia, iron deficiency. FAMILY HISTORY: Unremarkable. SOCIAL HISTORY: No history of smoking. The patient has a history of alcohol dependence. ALLERGIES: None. PHYSICAL EXAMINATION: VITAL SIGNS: Blood pressure 130/80, pulse 70, respirations 20. HEAD: Normocephalic. No lumps or bumps. EYES: Pupils equal, reactive to light. Fundi show AV nicking, sclerae white, conjunctivae pink. NECK: Carotid 2+. Normal upstroke. JVD 10 cm above sternal angle. Thyroid not palpable. Lymph nodes not palpable. CHEST: Shows increased AP diameter. No kyphosis, scoliosis. LUNGS: Bilateral rales. Decreased breath sounds in both the bases. HEART: PMI sixth intercostal space with lateral to midclavicular line. S1, S2, S3, S4, soft systolic murmur. ABDOMEN: Soft. Spleen slightly enlarged. NEUROLOGIC: Unremarkable. EXTREMITIES: Peripheral pulses 1+, pedal edema 2+. CLINICAL IMPRESSION: 1. Congestive heart failure, diastolic dysfunction, ejection fraction 65%, acute. 2. Cirrhosis of liver. 3. Alcoholic hepatitis. 4. Alcohol dependence. 5. Diabetes mellitus type 2, insulin-dependent diabetes mellitus, diabetic peripheral neuropathy. 6. Gastroesophageal reflux disease. 7. Iron deficiency anemia. DIAGNOSTIC DATA: The patient's echocardiogram showed left atrial enlargement, right atrial enlargement, ejection fraction of 58%, left ventricular hypertrophy. PLAN: The patient to continue on Lasix and monitor the patient on telemetry bed. JOB# [id number]
[2018-02-22] MEDS: Insulin Detemir 100 units/mL 10mL Vial SUBQ SCH (21:26)
[2018-02-23] MEDS: INSULIN ASPART SLIDING SCALE 100 UNITS/ML UNIT SUBQ SCH ×3 (06:56→17:39)
[2018-02-23 07:18] LABS: ANION GAP 10.4 (7.0-16.0); BUN - UREA NITROGEN 12 mg/dL (7-25); CALCIUM SERUM 8.7 mg/dL (8.6-10.3); CARBON DIOXIDE 29.3 mEq/L (21.0-31.0); CHLORIDE 105 mEq/L (98-107); CREATININE - SERUM 0.9 mg/dL (0.7-1.3); GFR AFRICAN-AMERICAN > 60.0 ml/min (>90); GFR NON AFRICAN-AMERICAN > 60.0 ml/min; GLUCOSE 74 mg/dL (70-105); MAGNESIUM 1.9 mg/dL (1.9-2.7); POTASSIUM SERUM 3.7 mEq/L (3.5-5.1); SODIUM SERUM 141 mEq/L (136-145)
[2018-02-23] MEDS: Lactobacillus Rhamnosus GG 15 Billion CFU CAP.SPRINK PO SCH (08:23)
[2018-02-23] MEDS: Potassium Chloride 20 mEq ER Tab PO SCH ×2 (08:23→16:42)
[2018-02-23] MEDS: Ferrous Sulfate 325 MG TAB PO SCH ×2 (08:23→16:42)
[2018-02-23] MEDS: Pantoprazole 40 mg EC Tab PO SCH (08:23)
[2018-02-23] MEDS: Multivitamin Tab PO SCH (08:23)
[2018-02-23] MEDS: Lactulose 10 Gm/15 mL 30mL UDC PO SCH (08:25)
--- NOTE | 2018-02-23 12:20 | Discharge Summary ---
DATE OF DISCHARGE: 02/23/2018 CHIEF COMPLAINT: Leg swelling and shortness of breath. FINAL DIAGNOSES: Right lower extremity cellulitis, acute diastolic congestive heart failure decompensation, pulmonary infiltrates, low albumin, cirrhosis, alcoholic hepatitis, generalized weakness, hepatic encephalopathy, anemia, and elevated ammonia. HISTORY OF PRESENT ILLNESS: This is a 57-year-old male with history of alcoholic hepatitis and generalized weakness, sent from nursing facility secondary to worsening leg swelling and pain. The patient was diagnosed with cellulitis and possible pneumonia and admitted for further management. PHYSICAL EXAMINATION: VITAL SIGNS: Blood pressure 111/68, respiratory rate 17, pulse 76, and temperature 98. GENERAL: An elderly male, appears chronically ill. NECK: Supple. No mass. LUNGS: Equal breath sounds, few rhonchi. HEART: Regular rate and rhythm. Systolic ejection murmur. ABDOMEN: Soft and globular. EXTREMITIES: Positive excoriation. Decreased erythema in the right lower extremity. HOSPITAL COURSE: The patient was admitted to telemetry ____ treatment and IV antibiotic and IV diuretic. The patient was referred to Dr. Wallace Perkins for Cardiology. Lower extremity also was negative for DVT. Ultrasound was nonrevealing. The patient had a 2D echo. The patient's condition did improve and cleared for discharge. CONDITION ON DISCHARGE: Fair. DISCHARGE INSTRUCTIONS: The patient is to continue with diuretics as well as lactulose. The patient will be followed by his regular physician and the nursing staff. JOB# [id number]
[2018-02-23] MEDS: Hydrocodone/APAP 5mg/325mg Tab PO PRN (15:05)
[2018-02-23] MEDS ORDERED: Amoxicillin/Clavulanat 875/125 Tab PO SCH (17:00)
[2018-02-23] MEDS ORDERED: Lactulose 10 Gm/15 mL 30mL UDC PO SCH (17:00)
[2018-02-25 06:09] LABS: FOLIC ACID >20.0 ng/mL (>3.0)
== END 2018-02-23 19:15 | DRG 602 ==
LOC: ER 15:10 → TELE 19:00
PROVIDERS: ADMIT Internal Medicine; ATTEND Internal Medicine
DX: L03.115 Cellulitis of right lower limb (principal); I50.33 Acute on chronic diastolic (congestive) heart failure; L03.116 Cellulitis of left lower limb; K72.90 Hepatic failure, unspecified without coma; I11.0 Hypertensive heart disease with heart failure; D64.9 Anemia, unspecified; I25.10 Atherosclerotic heart disease of native coronary artery without angina pectoris; E78.5 Hyperlipidemia, unspecified; K21.9 Gastro-esophageal reflux disease without esophagitis; B19.20 Unspecified viral hepatitis C without hepatic coma; F17.210 Nicotine dependence, cigarettes, uncomplicated; D69.6 Thrombocytopenia, unspecified; K70.10 Alcoholic hepatitis without ascites; E11.42 Type 2 diabetes mellitus with diabetic polyneuropathy; F10.20 Alcohol dependence, uncomplicated; D50.9 Iron deficiency anemia, unspecified; K74.60 Unspecified cirrhosis of liver; Z82.49 Family history of ischemic heart disease and other diseases of the circulatory system; Z79.4 Long term (current) use of insulin
CPT/HCPCS: 36415-UA; 71045-TC; 80048-TC; 80053-TC; 80061-TC; 80076-TC; 81001-TC; 82140-TC; 82150-TC; 82550-TC; 82607-90; 82746-90; 82948-90; 83605; 83690-TC; 83735-TC; 83880-TC; 84484-TC; 85007-TC; 85025-TC; 85610-TC; 85730-TC; 93970-TC-50; 96375; J0456; J0696; J1815; J1940; J2543; J3475; Z7610